=== PATIENT | male | born 1970 | race Caucasian/White ===

== ENCOUNTER 2017-05-15 17:54 | Emergency (ER) | payer BC ==
--- NOTE | 2017-05-15 18:44 | EDM.PDOC ---
ED HPI GENERAL MEDICAL PROBLEM - General Chief Complaint: Respiratory Problem Stated Complaint: COUGH Time Seen by Provider: 05/15/17 18:37 Source of Information: Reports: Patient History Limitations: Reports: No Limitations - History of Present Illness INITIAL COMMENTS - FREE TEXT/NARRATIVE: HISTORY AND PHYSICAL: []46-year-old male presenting with a cough History of Present Illness: [Patient has been sick for the last 6-7 weeks. He has been on a Z-Shantanu and steroids. Without improvement] Review of Systems: As per history of present illness and below otherwise all systems reviewed and negative. Past medical history: As per history of present illness and as reviewed below otherwise noncontributory. Surgical history: As per history of present illness and as reviewed below otherwise noncontributory. Social history: No reported history of drug or alcohol abuse. Family history: As per history of present illness and as reviewed below otherwise noncontributory. Physical exam: Alert oriented male who is coughing during examination. Answering questions appropriately can speak in full sentences but has to cough afterwards if taking a deep breath. HEENT: Atraumatic, normocehpalic, pupils reactive, negative for conjunctival pallor or scleral icterus, mucous membranes moist, throat clear, neck supple, nontender, trachea midline. Lungs: Wheezing on auscultation, breath sounds equal bilaterally, chest non tender. Heart: S1S2, regular, negative for clicks, rubs, or JVD. Abdomen: Soft, nondistended, nontender. Negative for masses or hepatossplenmegaly. Negative for costovertebral tenderness. Pelvis: Stable nontender. Genitourinary: Deferred. Rectal: Deferred Extremities: Atraumatic, negative for cords or calf pain. Neurovascular unremarkable. Neuro: Awake, alert, oriented. Cranial nerves II through XII unremarkable. Cerebellum unremarkable. Motor and sensory unremarkable throughout. Exam nonfocal. Discussed with the patient the likely viral nature of his infection. We'll give him a medication for his cough that will not interfere with his driving. Diagnostics: [] Therapeutics: [] Impression: [Viral upper respiratory infection/bronchitis] Plan: [Discharged to home Medrol dose pack for wheezing Tessalon Perles for cough] Definitive disposition and diagnosis as appropriate pending reevaluation and review of above. Onset: Gradual Duration: Week(s):, Waxing/Waning Location: Reports: Chest - Related Data Allergies Allergy/AdvReac Type Severity Reaction Status Date / Time escitalopram [From Lexapro] Allergy Anaphylactic Verified 05/15/17 18:32 Shock Penicillins Allergy Cardiac Verified 05/15/17 18:32 Arrest Home Meds: Home Meds methylPREDNISolone [Medrol] 4 mg PO ASDIRECTED #1 dosepk 05/15/17 [Rx] ED ROS GENERAL - Review of Systems Review Of Systems: ROS reveals no pertinent complaints other than HPI. ED EXAM, GENERAL - Physical Exam Exam: See Below (See dictation) Course - Vital Signs Last Recorded V/S: Last Vital Signs Temp 36.9 C 05/15/17 18:32 Pulse 84 05/15/17 18:32 Resp 20 05/15/17 18:32 BP 139/64 05/15/17 18:32 Pulse Ox 97 05/15/17 18:32 - Orders/Labs/Meds Meds: Medications Discontinued Medications Generic Name Dose Route Start Last Admin Trade Name Freq PRN Reason Stop Dose Admin Prednisolone 30 mg 05/15/17 19:11 Orapred 15 Mg/5ml Soln PO 05/15/17 19:12 ONETIME ONE Departure - Departure Time of Disposition: 19:17 Disposition: Home, Self-Care 01 Condition: Good Clinical Impression: Upper respiratory infection Qualifiers: URI type: unspecified viral URI Qualified Code(s): J06.9 - Acute upper respiratory infection, unspecified - Discharge Information Prescriptions: methylPREDNISolone [Medrol] 4 mg PO ASDIRECTED #1 dosepk Referrals: PCP,None [Primary Care Provider] - Forms: ED Department Discharge Additional Instructions: The following information is given to patients seen in the emergency department who are being discharged to home. This information is to outline your options for follow-up care. We provide all patients seen in our emergency department with a follow-up referral. The need for follow-up, as well as the timing and circumstances, are variable depending upon the specifics of your emergency department visit. If you don't have a primary care physician on staff, we will provide you with a referral. We always advise you to contact your personal physician following an emergency department visit to inform them of the circumstance of the visit and for follow-up with them and/or the need for any referrals to a consulting specialist. The emergency department will also refer you to a specialist when appropriate. This referral assures that you have the opportunity for followup care with a specialist. All of these measure are taken in an effort to provide you with optimal care, which includes your followup. Under all circumstances we always encourage you to contact your private physician who remains a resource for coordinating your care. When calling for followup care, please make the office aware that this follow-up is from your recent emergency room visit. If for any reason you are refused follow-up, please contact the [facility] emergency department at and asked to speak to the emergency department charge nurse. You have a upper respiratory infection that is viral in nature Antibiotics will not help a viral infection You were given steroids while in the emergency department A prescription for steroids has been sent to your pharmacy A prescription for Tessalon Perles to help with your cough has been sent to your pharmacy
[2017-05-15] MEDS ORDERED: prednisoLONE Soln 15 MG/5 ML UD Cup PO ONE (19:11)
== END 2017-05-15 19:50 | disposition home or self-care (01) ==
LOC: MW.ED 17:54
DX: J06.9 Acute upper respiratory infection, unspecified (principal); J40 Bronchitis, not specified as acute or chronic; Z88.0 Allergy status to penicillin; Z88.8 Allergy status to other drugs, medicaments and biological substances
CPT/HCPCS: 99283; A9270; 99282

== ENCOUNTER 2017-10-19 21:27 | Emergency (ER) | payer BC ==
--- NOTE | 2017-10-19 21:40 | EDM.PDOC ---
ED HPI GENERAL MEDICAL PROBLEM - General Chief Complaint: General Stated Complaint: PAIN/SWOLLEN MOUTH Time Seen by Provider: 10/19/17 21:35 Source of Information: Reports: Patient History Limitations: Reports: No Limitations - History of Present Illness INITIAL COMMENTS - FREE TEXT/NARRATIVE: HISTORY AND PHYSICAL: []46-year-old male presenting with pain to his jawline TMJ area History of Present Illness: []Has history of TMJ/this does feel like his previous difficulty Review of Systems: As per history of present illness and below otherwise all systems reviewed and negative. Past medical history: As per history of present illness and as reviewed below otherwise noncontributory. Surgical history: As per history of present illness and as reviewed below otherwise noncontributory. Social history: No reported history of drug or alcohol abuse. Family history: As per history of present illness and as reviewed below otherwise noncontributory. Physical exam: Alert and oriented man answering questions appropriately holding his jaw quite still when speaking nontoxic in appearance HEENT: Atraumatic, normocehpalic, pupils reactive, negative for conjunctival pallor or scleral icterus, mucous membranes moist, throat clear, neck supple, nontender, trachea midline. He is tender with opening and closing his mouth at TMJ pressure was applied and pain is present extending up into the left ear Lungs: Clear to auscultation, breath sounds equal bilaterally, chest non tender. Heart: S1S2, regular, negative for clicks, rubs, or JVD. Abdomen: Soft, nondistended, nontender. Negative for masses or hepatossplenmegaly. Negative for costovertebral tenderness. Pelvis: Stable nontender. Genitourinary: Deferred. Rectal: Deferred Extremities: Atraumatic, negative for cords or calf pain. Neurovascular unremarkable. Neuro: Awake, alert, oriented. Cranial nerves II through XII unremarkable. Cerebellum unremarkable. Motor and sensory unremarkable throughout. Exam nonfocal. 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 Onset: Gradual Duration: Day(s): Location: Reports: Face Quality: Reports: Ache Severity: Moderate Improves with: Reports: None Worsens with: Reports: None Associated Symptoms: Reports: Other (pain to tmj) Face Pain Score (Numeric/FACES): 7 - Related Data Allergies Allergy/AdvReac Type Severity Reaction Status Date / Time escitalopram [From Lexapro] Allergy Anaphylactic Verified 05/15/17 18:32 Shock Penicillins Allergy Cardiac Verified 05/15/17 18:32 Arrest Home Meds: Home Meds Benzonatate [Tessalon Perle] 100 mg PO QID PRN #28 capsule 05/15/17 [Rx] methylPREDNISolone [Medrol] 4 mg PO ASDIRECTED #1 dosepk 05/15/17 [Rx] Diclofenac Sodium [Voltaren] 75 mg PO BIDMEALS #20 tab.cr 10/19/17 [Rx] methylPREDNISolone [Medrol] 4 mg PO ASDIRECTED #1 dosepk 10/19/17 [Rx] Past Medical History Musculoskeletal History: Reports: RA - Past Surgical History Musculoskeletal Surgical History: Reports: Other (See Below) Other Musculoskeletal Surgeries/Procedures:: knee surgery Social & Family History - Family History Family Medical History: Noncontributory ED ROS GENERAL - Review of Systems Review Of Systems: ROS reveals no pertinent complaints other than HPI. ED EXAM, GENERAL - Physical Exam Exam: See Below (see dictation) Course - Vital Signs Last Recorded V/S: Last Vital Signs Temp 36.0 C 10/19/17 21:37 Pulse 56 L 10/19/17 21:37 Resp 18 10/19/17 21:37 BP 122/76 10/19/17 21:37 Pulse Ox 100 10/19/17 21:37 - Orders/Labs/Meds Orders: Active Orders 24 hr Category Date Time Status Diclofenac Sodium [Voltaren] Med 10/19/17 21:47 Once 75 mg PO ONETIME ONE methylPREDNISolone [Medrol] Med 10/20/17 09:00 Ordered 4 mg PO DAILY Medication Orders Methylprednisolone (Medrol) 4 mg PO DAILY RIGO Meds: Medications Generic Name Dose Route Start Last Admin Trade Name Freq PRN Reason Stop Dose Admin Methylprednisolone 4 mg 10/20/17 09:00 Medrol PO DAILY RIGO Departure - Departure Time of Disposition: 21:42 Disposition: Home, Self-Care 01 Condition: Good Clinical Impression: TMJ (temporomandibular joint disorder) - Discharge Information *PRESCRIPTION DRUG MONITORING PROGRAM REVIEWED*: Not Applicable *COPY OF PRESCRIPTION DRUG MONITORING REPORT IN PATIENT GERHARD: Not Applicable Prescriptions: Diclofenac Sodium [Voltaren] 75 mg PO BIDMEALS #20 tab.cr methylPREDNISolone [Medrol] 4 mg PO ASDIRECTED #1 dosepk Instructions: Jaw Range of Motion Exercises, Temporomandibular Joint Syndrome Referrals: Bartolome Chaudhary MD [Primary Care Provider] - Forms: ED Department Discharge Additional Instructions: The following information is given to patients seen in the emergency department who are being discharged to home. This information is to outline your options for follow-up care. We provide all patients seen in our emergency department with a follow-up referral. The need for follow-up, as well as the timing and circumstances, are variable depending upon the specifics of your emergency department visit. If you don't have a primary care physician on staff, we will provide you with a referral. We always advise you to contact your personal physician following an emergency department visit to inform them of the circumstance of the visit and for follow-up with them and/or the need for any referrals to a consulting specialist. The emergency department will also refer you to a specialist when appropriate. This referral assures that you have the opportunity for followup care with a specialist. All of these measure are taken in an effort to provide you with optimal care, which includes your followup. Under all circumstances we always encourage you to contact your private physician who remains a resource for coordinating your care. When calling for followup care, please make the office aware that this follow-up is from your recent emergency room visit. If for any reason you are refused follow-up, please contact the [facility] emergency department at and asked to speak to the emergency department charge nurse. You're found to have a inflammation in the TMJ You may get a block at [facility] to help with grinding of your teeth Medrol Dosepak and diclofenac has been ordered for you to tile picker tomorrow Return as directed discussed - My Orders Last 24 Hours: My Active Orders 10/19/17 21:47 Diclofenac Sodium [Voltaren] 75 mg PO ONETIME ONE 10/20/17 09:00 methylPREDNISolone [Medrol] 4 mg PO DAILY - Assessment/Plan Last 24 Hours: My Active Orders 10/19/17 21:47 Diclofenac Sodium [Voltaren] 75 mg PO ONETIME ONE 10/20/17 09:00 methylPREDNISolone [Medrol] 4 mg PO DAILY
[2017-10-19] MEDS ORDERED: Diclofenac Sodium 75 MG Tab.EC PO ONE (21:47)
[2017-10-19] MEDS ORDERED: Ketorolac 60 MG/2 ML SDV IM ONE ×2 (21:54)
[2017-10-19] MEDS ORDERED: predniSONE 10 MG Tab PO ONE (21:54)
[2017-10-19] MEDS ORDERED: predniSONE 10 MG Tab PO SCH (22:00)
== END 2017-10-19 22:10 | disposition home or self-care (01) ==
LOC: MW.ED 21:27
DX: M26.602 Left temporomandibular joint disorder, unspecified (principal); Z88.0 Allergy status to penicillin; Z88.8 Allergy status to other drugs, medicaments and biological substances
CPT/HCPCS: 99283; A9270; J1885; 99282